=== PATIENT | male | born 1985 | race Two or more races ===

== ENCOUNTER 2016-11-09 18:59 | Emergency (ER) | payer MEDICAID ==
[2016-11-09 19:11] VITALS: RESP 16; TEMP 97.5
[2016-11-09] MEDS ORDERED: ACETAMINOPHEN 500 MG TAB PO ONE (19:39)
--- NOTE | 2016-11-09 20:11 | EDPHY ---
H & P Time Seen by Provider: 11/09/16 19:03 HPI/ROS: CHIEF COMPLAINT: Left ankle pain History by patient HISTORY OF PRESENT ILLNESS: 31-year-old man presents complaining of left ankle pain after he slipped off a ladder and fell off a roof. Patient states that he had 1 foot on the roof and 1 on the ladder when the ladder slipped out from underneath him and he slid down trying to grab the tiles. He thinks he may have hung for 2nd on the gutter before dropping to the ground and landing on his feet, rolling back and a his buttocks and back. He denies hitting his head or losing consciousness. He was able to get up right away. This happened at least 5 hours prior to admission. He has been ambulatory but continues to have pain in his left ankle. He denies any neck, back or chest pain. He denies any shortness of breath. He did say he felt a slight "very minor "pain when he took a deep breath in. He did scrape his left hand and wrist as he slipped off the roof. His last tetanus shot was is less than 10 years ago. REVIEW OF SYSTEMS: As in HPI, and all other systems reviewed and are negative Smoking Status: Never smoked Physical Exam: General Appearance: Alert and no distress. Head: Normocephalic, atraumatic Eyes: Pupils equal and round no injection. Musculoskeletal: Neck is supple and nontender. Back: No bony tenderness, no CVA tenderness Chest: Bilateral clear to auscultation throughout, no chest wall tenderness, no crepitus or step-off Extremities: Left ankle with mild swelling around lateral malleolus, positive tenderness to anterior and posterior malleolus, decreased range of motion secondary to pain, DP pulse 2 +and equal bilaterally, distal sensation intact, wiggles all toes, no proximal fibular tenderness, full range of motion of left knee without tenderness or pain Left hand: Positive abrasion on small finger and volar surface of forearm. Skin: No rashes or lesions except as described above. Neurologic: Awake alert oriented x3, cranial she is 12 intact, normal gait, no pronator drift Constitutional: Initial Vital Signs Temperature (C) 36.4 C 11/09/16 19:06 Heart Rate 88 11/09/16 19:06 Respiratory Rate 16 11/09/16 19:06 Blood Pressure 138/92 H 11/09/16 19:06 O2 Sat (%) 96 11/09/16 19:06 O2 Delivery Mode Room Air Allergies/Adverse Reactions: ibuprofen Allergy (Verified 11/09/16 19:04) Home Medications: Medication Instructions Recorded NK [No Known Home Meds] 11/09/16 MDM/Departure - MDM Imaging: I viewed and interpreted images myself Medications Given: Discontinued Medications Acetaminophen (Tylenol) 1,000 mg PO EDNOW ONE Stop: 11/09/16 19:40 Last Admin: 11/09/16 19:42 Dose: 1,000 mg ED Course/Re-evaluation: 31-year-old man presents after falling off a 1 story roof and landing on his feet 5 hours prior to admission. Patient is hemodynamically stable there is no evidence of significant trauma. His only complaint is ankle pain. Exam is unremarkable except for ankle tenderness and swelling. X-ray of the left ankle showed no evidence of fracture. Patient was given ice and Tylenol with some improvement. He will be treated for an ankle sprain. We discussed home care and follow-up.. - Depart Disposition: Home, Routine, Self-Care Clinical Impression: Left ankle sprain Qualifiers: Encounter type: initial encounter Involved ligament of ankle: unspecified ligament Qualified Code(s): S93.402A - Sprain of unspecified ligament of left ankle, initial encounter Condition: Good Instructions: Ankle Sprain (ED) Additional Instructions: You were seen by Dr. Rika Dillon today. Take Tylenol as needed for pain and ice her ankle. Keep it elevated. You may weight bear as tolerated. Follow up with the primary care physician if no improvement in 2-3 weeks. Return for any worsening or new concerns. Referrals: MARSHAL EL,. [Primary Care Provider] - As per Instructions
[2016-11-09 20:36] VITALS: BP 131/74; PULSE 87; O2SAT 94
== END 2016-11-09 20:20 | disposition home or self-care (01) ==
LOC: CED 18:59
DX: S93.402A Sprain of unspecified ligament of left ankle, initial encounter (principal); W13.2XXA Fall from, out of or through roof, initial encounter
CPT/HCPCS: 73610-PO; L4350

== ENCOUNTER 2018-05-29 20:58 | Emergency (ER) | payer MEDICAID ==
[2018-05-29] MEDS ORDERED: BENZOCAINE UNIT DOSE SPRAY HURRICAINE MM ONE ×2 (21:19→21:30)
--- NOTE | 2018-05-29 22:10 | EDPHY ---
H & P Smoking Status: Never smoked Time Seen by Provider: 05/29/18 21:07 HPI/ROS: CHIEF COMPLAINT: Foreign body throat HISTORY OF PRESENT ILLNESS: Patient states he was at a restaurant eating fish around 2:00 p.m. Today when he felt a "poking sensation" in the right side of his throat. He did initially cough and it seemed to go away at 1st. He noticed no blood. It later on after he got home around 7:00 p.m. He ate a banana and felt that foreign body sensation again. He describes it as a sharp pain in the right lower oropharynx area. He denies difficulty breathing. He is able to swallow water and his own secretions. He has no other complaints. REVIEW OF SYSTEMS: Constitutional: No fever, no chills. Eyes: No discharge. ENT: Per HPI Cardiovascular: No chest pain, no palpitations. Respiratory: No cough, no shortness of breath. Gastrointestinal: No abdominal pain, no vomiting. Genitourinary: No dysuria. Musculoskeletal: No back pain. Skin: No rashes. Neurological: No headache. General Appearance: Alert, no distress. Eyes: Pupils equal and round no pallor or injection. ENT, Mouth: Mucous membranes moist. No visualized FB. Tonsilar hypertrophy bilaterally with tiny area of blood noted on right tonsil. No LAD, crepitus cervical region. Respiratory: There are no retractions, lungs are clear to auscultation. Cardiovascular: Regular rate and rhythm. Gastrointestinal: Abdomen is soft and nontender, no masses, bowel sounds normal. Neurological: Awake, alert, no focal neurologic deficits. Skin: Warm and dry, no rashes. Musculoskeletal: Neck is supple nontender. Extremities are symmetrical, full range of motion, no edema. Psychiatric: Patient is oriented X 3, there is no agitation. Medical/surgical history: No previous past medical history. Social history: Nonsmoker, denies drugs, rare EtOH. (Brandy Mosqueda) Constitutional: Initial Vital Signs Temperature (C) 37.0 C 05/29/18 21:06 Heart Rate 68 05/29/18 21:06 Respiratory Rate 16 05/29/18 21:06 Blood Pressure 136/88 H 05/29/18 21:06 O2 Sat (%) 97 05/29/18 21:06 O2 Delivery Mode Room Air Allergies/Adverse Reactions: ibuprofen Allergy (Verified 04/14/19 23:28) Home Medications: Medication Instructions Recorded NK [No Known Home Meds] 11/09/16 Medical Decision Making Procedures: 9:40 p.m. discussed risks and benefits of direct visualization with the laryngoscope, patient consents. [place] spray applied topically. Good visualization of oropharynx with both laryngoscope and glide scope. However given patient's large tonsils unable to visualize directly the vallecula or epiglottis. 9:[address] Galicia, emergency physician at [facility] [place]. Agrees to take patient in transfer. 9:[address] Zuluaga, ENT, offered patient option for going to ENT clinic 1st thing in the morning and he preferred to get assessed this evening as he has to work tomorrow. Transfer paperwork completed, patient will go by private vehicle, told to remain NPO and go directly to the emergency department. (Brandy Mosqueda) Differential Diagnosis: Differential diagnosis includes foreign body to the oropharynx, foreign body sensation after mucosal trauma, other dysphagia. Unable to visualize the posterior oropharynx and deeper structures given patient's anatomy and limits of oral lower endoscopy. No endoscope available at this facility. Discussed with both the emergency physician at [facility] [place] as well as the ENT on- call and plan is to transfer patient to [facility] [place] for further evaluation to visualize area of concern. Patient understands plan to go by private vehicle directly to the emergency department without stops and to remain NPO. No evidence of perforation, esophageal foreign body, airway obstruction or compromise. (Brandy Mosqueda) - Data Points Medications Given: Discontinued Medications Benzocaine (Hurricaine [place]) 1 each MM EDNOW ONE Stop: 05/29/18 21:20 Last Admin: 05/29/18 21:29 Dose: 1 each Benzocaine (Hurricaine [place]) 1 each MM EDNOW ONE Stop: 05/29/18 21:31 Last Admin: 05/29/18 21:47 Dose: 1 each Departure - Departure Disposition: Home, Routine, Self-Care Clinical Impression: Sensation of foreign body in larynx Condition: Good Instructions: Foreign Body in Pharynx (ED) Additional Instructions: Your x-ray and scoped today showed no fish bone. Your probably experiencing pain from the scrape of the bone in her throat. If you have any symptoms tomorrow, you should follow up with Dr. Zuluaga. I have listed her number below. Referrals: NIKKO ARAYA [Other] - As per Instructions Mariam Zuluaga MD [Medical Doctor] - As per Instructions
--- NOTE | 2018-05-30 00:45 | EDPHY ---
H & P Stated Complaint: Fish bone stuck in throat Time Seen by Provider: 05/29/18 21:07 Source: Patient Exam Limitations: No limitations - Personal History Current Tetanus/Diphtheria Vaccine: Yes Current Tetanus Diphtheria and Acellular Pertussis (TDAP): Yes Tetanus Vaccine Date: 2009 - Medical/Surgical History Hx Asthma: No Hx Chronic Respiratory Disease: No Hx Diabetes: No Hx Cardiac Disease: No Hx Renal Disease: No Hx Cirrhosis: No Hx Alcoholism: No Hx HIV/AIDS: No Hx Splenectomy or Spleen Trauma: No Other PMH: med hx-none. surg-none - Social History Smoking Status: Never smoked Constitutional: Initial Vital Signs Temperature (C) 37.0 C 05/29/18 21:06 Heart Rate 68 05/29/18 21:06 Respiratory Rate 16 05/29/18 21:06 Blood Pressure 136/88 H 05/29/18 21:06 O2 Sat (%) 97 05/29/18 21:06 O2 Delivery Mode Room Air Medical Decision Making Differential Diagnosis: This is a 32-year-old man who ate fish at about 2:00 p.m. And has foreign body sensation of his right throat. [place] scope was introduced though was unable to visualize any foreign body at the [facility] Here, I have used our Nasophargneal bedside scope to attempt to visualize and was able to get a good view of epiglottis, cords, vallecula and did not visualize any foreign body. Soft tissue neck x-ray was also negative. Case discussed with the on- call ENT doctor Zan. We will discharge the patient and have him follow up with ENT tomorrow is needed. - Data Points Medications Given: Discontinued Medications Benzocaine (Hurricaine [place]) 1 each MM EDNOW ONE Stop: 05/29/18 21:20 Last Admin: 05/29/18 21:29 Dose: 1 each Benzocaine (Hurricaine [place]) 1 each MM EDNOW ONE Stop: 05/29/18 21:31 Last Admin: 05/29/18 21:47 Dose: 1 each Departure - Departure Disposition: Home, Routine, Self-Care Clinical Impression: Sensation of foreign body in larynx Condition: Good Instructions: Foreign Body in Pharynx (ED) Additional Instructions: Your x-ray and scoped today showed no fish bone. Your probably experiencing pain from the scrape of the bone in her throat. If you have any symptoms tomorrow, you should follow up with Dr. Zuluaga. I have listed her number below. Referrals: NIKKO ARAYA [Other] - As per Instructions Mariam Zuluaga MD [Medical Doctor] - As per Instructions
[2018-05-30 01:09] VITALS: BP 126/89
== END 2018-05-30 01:08 | disposition home or self-care (01) ==
LOC: CED 22:22
PROC: 0CJS8ZZ Inspection of Larynx, Via Natural or Artificial Opening Endoscopic (ICD-10-PCS; principal; 2018-05-29)
DX: Z03.89 Encounter for observation for other suspected diseases and conditions ruled out (principal)